=== PATIENT | female | born 1950 | race Caucasian/White ===

== ENCOUNTER → 2019-03-19 | Outpatient (CLI) | payer OTHER ==
[~2019-03-19] VITALS: Ht 165.1 cm; Wt 63.5 kg
[~2019-03-19] MED LIST: CITRACAL + BON1 EACH PO; EFFEXOR XR75 MG PO
--- NOTE | 2019-03-21 17:06 | PATH ---
[facility] [address] [place] [address] PATHOLOGY RPT PROCEDURE Name: SAYDA VASQUES Room #: REG BETTIE Saenz#: [id number] Admission: 03/19/19 Date of : 50 Discharge: Report #: [id number] Path Case #: [id number] [facility] Accession Number: [id number] . 01 Material submitted: . PART A: colon - POLYP AT TRANSVERSE COLON. Modifiers: transverse PART B: colon - POLYP AT SIGMOID COLON. Modifiers: sigmoid . 01 Clinical history: . History of polyps . 02 Diagnosis: A. Polyp, at transverse colon, endoscopic biopsy: - Inflammatory hyperplastic polyp. - Negative for dysplasia. . B. Polyp, at sigmoid colon, endoscopic biopsy: - Hyperplastic polyp. - Negative for dysplasia. (IUV:neha; 03/21/2019) QMS 03/21/2019 1405 Local . 02 Electronically signed: . Hyacinth U Vadlamani, MD, Pathologist NPI- [id number] . 01 Gross description: . A. The specimen is received in formalin, labeled "Sayda Vasques, polyp at transverse colon". Received are two segments of pale ortiz soft tissue ranging in size from 0.4 to 0.8 cm in maximum dimensions. The specimen is submitted entirely in cassette A1. . B. The specimen is received in formalin, labeled "Sayda Vasques, polyp at sigmoid colon". Received is a segment of pale ortiz soft tissue measuring 0.6 cm in maximum dimensions. The specimen is submitted entirely in cassette B1. (CAA; 03/20/2019) QAC/QAC 03/20/2019 0902 Local . 02 Pathologist provided ICD-10: K51.40, K63.5 . 02 CPT . 604067, 831423 Specimen Comment: A courtesy copy of this report has been sent to [phone] Specimen Comment: [phone] [id number] PATHOLOGY RPT PROCEDURE Name: SAYDA VASQUES Room #: REG [facility] [id number] Admission: 03/19/19 Date of : 50 Discharge: Report #: [id number] Path Case #: [id number] Specimen Comment: Report sent to and Performed at: 01 [facility] [address], [place], [place] [id number] MD Nathaniel Love MD Phone: [phone] Performed at: [address] [id number] MD Hyacinth Keith MD Phone: [phone]
== END | disposition home or self-care (01) ==
LOC: GI 09:38
DX: Z12.11 Encounter for screening for malignant neoplasm of colon (principal); Z86.010 Personal history of colon polyps; K51.40 Inflammatory polyps of colon without complications; Z98.890 Other specified postprocedural states; Z90.710 Acquired absence of both cervix and uterus; Z98.51 Tubal ligation status; Z86.711 Personal history of pulmonary embolism; Z79.01 Long term (current) use of anticoagulants
CPT/HCPCS: 62110; 62900